=== PATIENT | female | born 1940 | race Caucasian/White ===

== ENCOUNTER 2018-10-21 11:51 | Emergency (ER) | payer MEDICARE, OTHER ==
[~2018-10-21] VITALS: Ht 152.4 cm; Wt 62.7 kg
[~2018-10-21 11:51] MED LIST: ALLEGRA180 MG PO; ASPIRIN EC81 MG PO; BENADRYL25 MG PO; DOXYCYCL HYC100 M4 PO; GABAPENTIN300 MG PO; LIPITOR20 MG PO; MEDDOSEPAK PO; NEXIUM20 MG OR; SYNTHROID50 MCG PO
[2018-10-21] MEDS ORDERED: PROBIOTI3 (12:03)
[2018-10-21] MEDS ORDERED: FAMOTIDINE20 M1 PO (12:03)
[2018-10-21] MEDS ORDERED: TESSALON PER100 MG PO (14:09)
[2018-10-21] MEDS ORDERED: PREDNISONE20 MG PO (14:09)
[2018-10-21] MEDS ORDERED: VENTOLIN HFA IN (14:09)
[2018-10-21 14:41] VITALS: BP 146/78
== END 2018-10-21 14:41 | disposition home or self-care (01) ==
LOC: ED 11:51
DX: R05 Cough (principal); R50.9 Fever, unspecified

== ENCOUNTER 2021-09-28 19:44 | Emergency (ER) | payer MEDICARE, OTHER ==
[~2021-09-28] VITALS: Ht 152.4 cm; Wt 65.0 kg
[~2021-09-28 19:44] MED LIST changes: +ALIGN4 MG PO; +AZELASTINE0.1 %; +FAMOTIDINE20 M1 PO; +FLOVENT DI50 MCG/BLI; +FOSAMAX PLUS PO; +LEVOTHYROXIN25 MC1 PO; +PREDNISONE20 MG PO; +PROBIOTI3; +TESSALON PER100 MG PO; +VENTOLIN HFA IN; +VITAMIN D31000 UNI1 PO
[2021-09-28 20:56] LABS: HEMATOCRIT 38.3 % (37.0-47.0); HEMOGLOBIN 12.3 g/dl (12.0-16.0); MEAN CELL VOLUME 93.6 fL CALC (80.0-100.0); MEAN CORPUSCULAR HGB 30.1 pG CALC (26.0-32.0); MEAN CORPUSCULAR HGB CONC 32.1 g/dL CAL (32.0-36.0); NEUT# 4.5 thou/uL (2.00-7.15); RED BLOOD COUNT 4.09 mill/uL (4.20-5.60); RED CELL DISTRI WIDTH 11.9 % (11.5-15.5)
[2021-09-28 21:13] LABS: ALKALINE PHOSPHATASE 65 u/l (38-126); AMYLASE 96 u/l (30-110); ANION GAP 8 (6-22 (CALC)); BILIRUBIN, TOTAL 0.4 mg/dL (0.0-1.4); BUN 17 mg/dL (8-23); BUN/CREATININE RATIO 24 (12-20 (CALC)); CARBON DIOXIDE 30 mmol/l (22-30); CHLORIDE 103 mmol/l (95-108); CREATININE 0.7 mg/dL (0.5-1.0); ETHYL ALCOHOL 0 mg/dl (0-30); GFR > 60 ML/MIN (>=60 (CALC)); GFR FOR AFR.AMER. > 60 ML/MIN (>=60 (CALC)); LIPASE 85 u/l (23-300); SGOT/AST 32 u/l (9-36); SODIUM 138 mmol/l (137-146); TOTAL PROTEIN 7.2 g/dL (6.3-8.2)
[2021-09-28 21:14] LABS: POTASSIUM 3.4 mmol/l (3.5-5.1)
[2021-09-29 00:30] VITALS: BP 165/68
== END 2021-09-29 00:35 | disposition home or self-care (01) ==
LOC: ED 19:44
DX: R07.89 Other chest pain (principal); U07.1 COVID-19
CPT/HCPCS: S0164